=== PATIENT | male | born 1945 | race Caucasian/White ===

== ENCOUNTER → 2017-12-28 09:03 | Outpatient (CLI) | payer MEDICARE, SELFPAY ==
[2017-12-28 10:43] LABS: Cholesterol 125 mg/dL (140-199); HDL Cholesterol 58 mg/dL (40-60); LDL Cholesterol Calculated 50 mg/dL (<100); Triglycerides 86 mg/dL (35-150)
[2017-12-28 10:54] LABS: Creatinine Urine Random 222.4 mg/dL
[2017-12-28 11:04] LABS: Microalbumi Creatinin Ratio Ur 8.5 ug/mg CR (<30); Microalbumin Urine Random 1.9 mg/dL (0-1.6)
[2017-12-28 13:34] LABS: Prostate Specific Antigen Scrn < 0.064 ng/mL (0.1-4.0)
== END ==
PROVIDERS: PCP Family Medicine; Visit Provider Family Medicine
DX: E11.41 Type 2 diabetes mellitus with diabetic mononeuropathy (principal); E11.69 Type 2 diabetes mellitus with other specified complication; E78.5 Hyperlipidemia, unspecified; Z12.5 Encounter for screening for malignant neoplasm of prostate
CPT/HCPCS: 36415; 80061; 82043; 82570; 83036; G0103

== ENCOUNTER → 2018-09-21 09:18 | Outpatient (CLI) | payer MEDICARE, SELFPAY ==
[2018-09-21 10:41] LABS: Add Manual Diff / Slide Review YES; Hematocrit 44.2 % (41-53); Hemoglobin 14.4 g/dL (13.5-17.5); Mean Corpuscular HGB Conc 32.5 % (30-36); Mean Corpuscular Hemoglobin 28.5 PG (26-34); Mean Corpuscular Volume 87.6 fL (80-100); Platelet Count 190 X10^3/uL (150-400); Red Blood Cell Count 5.05 X10^6/uL (4.5-5.9); Red Cell Distribution Width 13.6 % (11.6-14.8); White Blood Cell Count 17.9 X10^3/uL (4.5-11.0)
[2018-09-21 11:03] LABS: Alanine Aminotransferase 14 IU/L (21-72); Albumin 4.2 g/dL (3.5-5.0); Albumin Globulin Ratio 1.7 (1.0-2.8); Alkaline Phosphatase 52 U/L (38-126); Aspartate Aminotransferase 27 IU/L (17-59); BUN Creatinine Ratio 18.8 (6-22); Bilirubin Total 1.5 mg/dL (0.2-1.3); Blood Urea Nitrogen 15 mg/dL (9-20); Calcium 9.7 mg/dL (8.4-10.2); Carbon Dioxide 28 mmol/L (22-32); Chloride 102 mmol/L (98-107); Cholesterol 113 mg/dL (140-199); Estimated Glomerular Filt Rate > 60.0 mL/min (>60); Globulin 2.5 g/dL (1.7-4.1); Glucose 159 mg/dL (80-110); HDL Cholesterol 54 mg/dL (40-60); HEMOLYSIS < 15 (0-50); LDL Cholesterol Calculated 45 mg/dL (<100); Potassium 4.5 mmol/L (3.4-5.1); Sodium 138 mmol/L (137-145); Total Protein 6.7 g/dL (6.3-8.2); Triglycerides 69 mg/dL (35-150)
[2018-09-21 11:11] LABS: Hemoglobin A1C% w Est Avg Glu 7.3 % (4.0-6.0); Neutrophils Absolute Manual 4296 /uL (3000-5900); Total Cells Counted 100
[2018-09-21 11:12] LABS: RBC Morphology Normal Morphology; Smudge Cells 2+
[2018-09-23 16:42] LABS: PSA Post Prostatectomy <0.02 ng/mL
== END ==
PROVIDERS: PCP Family Medicine; Visit Provider Family Medicine
DX: E11.41 Type 2 diabetes mellitus with diabetic mononeuropathy (principal); C91.90 Lymphoid leukemia, unspecified not having achieved remission; Z85.46 Personal history of malignant neoplasm of prostate
CPT/HCPCS: 36415; 80053; 80061; 83036; 84153; 85025

== ENCOUNTER → 2019-01-30 11:55 | Outpatient (CLI) | payer MEDICARE, SELFPAY ==
[2019-01-30 12:46] LABS: Hemoglobin A1C% w Est Avg Glu 7.3 % (4.0-6.0)
[2019-01-30 18:08] LABS: Microalbumin Urine Random 1.1 mg/dL (0-1.6)
[2019-01-30 18:10] LABS: Creatinine Urine Random 145.6 mg/dL; Microalbumi Creatinin Ratio Ur 7.5 ug/mg CR (<30)
== END ==
PROVIDERS: Family Provider Family Medicine; PCP Family Medicine; Visit Provider Family Medicine
DX: E11.59 Type 2 diabetes mellitus with other circulatory complications (principal)
CPT/HCPCS: 36415; 82043; 82570; 83036; 84443

== ENCOUNTER → 2019-03-08 07:52 | Outpatient (CLI) | payer MEDICARE, SELFPAY ==
--- NOTE | 2019-03-08 | DI.ECHO.S_ITS ---
[facility]---------+ [facility] +---------+ : : [address] : : : : [id number] : : : : Phone: [phone]+ Echocardiogram Report + + :Name: MICHELLE PADGETT Study Date: 03/08/2019 Height: 67 in : :[facility] Weight: 179 lb : : Gender: Male BSA: 1.9 m2 : :: 1945 Age: 74 yrs BP: 134/84 mmHg: :Reason For Study: Mitral Valve- Regurgitation : :Ordering Physician: Rick Power : :Jerardo Performed By: Oliver Ruth : :Referring: RICK KURTZ : + + Interpretation Summary 1) Normal left ventricular size, thickness, wall motion, and systolic function (EF 60-65%). 2) Normal right ventricular size and function. 3) There is mild mitral regurgitation. 4) Compared to the Echo done 04/09/2015, mitral regurgitation has decreased from mild-moderate to mild on this study. Procedure: A two-dimensional transthoracic echocardiogram with color flow and Doppler was performed. The study quality was technically adequate. Prior echo performed on 04/09/15. The patient was in normal sinus rhythm during the exam. Left Ventricle: The left ventricle is normal in size. There is normal left ventricular wall thickness. Left ventricular systolic function is normal. The ejection fraction is estimated to be 60-65%. Left ventricular wall motion is normal. Right Ventricle: The right ventricle is normal in size and function. Atria: The left atrium is mildly dilated. Right atrial size is normal. The interatrial septum is intact with no evidence for an atrial septal defect. Mitral Valve: The mitral valve leaflets appear mildly thickened, but open well. There is mild mitral regurgitation. Aortic Valve: There is mild aortic valve sclerosis. The aortic valve is trileaflet. The aortic valve opens well. There is no aortic valve stenosis. No aortic regurgitation is present. Tricuspid Valve: The tricuspid valve is normal in structure and function. There is trace tricuspid regurgitation. Pulmonary artery pressures cannot be estimated because of the lack of a measurable TR jet velocity. Pulmonic Valve: The pulmonic valve is not well visualized. Great Vessels: The aortic root is normal size. The ascending aorta is at the upper limits of normal in size. The pulmonary artery is normal size. The IVC is of normal diameter and collapses greater than 50% with a sniff. This suggests a low right atrial pressure of 3 mm Hg. Pericardium/ Pleura There is no pericardial effusion. There is no pleural effusion. MMode/2D Measurements & Calculations LVIDd: 4.4 cm LVOT diam: 2.0 cm LVIDs: 2.8 cm Ao root diam: 3.2 cm FS: 35.4 % asc Aorta Diam: 3.7 cm EPSS: 0.45 cm IVSd: 1.1 cm LVPWd: 1.1 cm LV garrett. diameter/BSA (cm/m^2): 2.3 LV sys. diameter/BSA (cm/m^2): 1.5 LA A2 area: 18.1 cm2 RA long axis: 5.2 cm LA A4 area: 16.6 cm2 RA area: 14.5 cm2 LA length (vol): 4.4 cm RA vol: 34.4 ml LA vol: 57.9 ml RA : 17.8 ml/m2 LA vol index: 30.0 ml/m2 TAPSE: 1.9 cm Doppler Measurements & Calculations Ao V2 max: 153.8 cm/sec LVOT Max Frantz: 93.9 cm/sec Ao V2 mean: 108.7 cm/sec LV V1 max P.5 mmHg Ao max P.5 mmHg LV V1 VTI: 20.2 cm Ao mean P.3 mmHg LOREN(I,D): 2.0 cm2 Ao V2 VTI: 32.5 cm LOREN(V,D): 1.9 cm2 sev ratio: 0.62 LOREN indexed to BSA (cm^2/m^2): 1.0 MV E max frantz: 60.4 cm/sec SV(LVOT): 64.7 ml MV A max frantz: 84.7 cm/sec MV E/A: 0.71 Med Peak E' Frantz: 6.6 cm/sec E/E' med: 9.1 Lat Peak E' Frantz: 6.4 cm/sec E/E' lat: 9.4 E/e' average: 9.3 MV dec time: 0.20 sec Reading Physician:11:23 AM
== END ==
PROVIDERS: Family Provider Family Medicine; PCP Family Medicine; Visit Provider Internal Medicine Cardiovascular Disease
DX: I34.0 Nonrheumatic mitral (valve) insufficiency (principal)
CPT/HCPCS: 93306

== ENCOUNTER → 2019-07-18 13:19 | Outpatient (CLI) | payer MEDICARE, SELFPAY ==
[2019-07-18 14:03] LABS: Hemoglobin A1C% w Est Avg Glu 7.4 % (4.0-6.0)
== END ==
PROVIDERS: Family Provider Family Medicine; PCP Family Medicine; Referring Provider Family Medicine; Visit Provider Family Medicine
DX: E11.41 Type 2 diabetes mellitus with diabetic mononeuropathy (principal)
CPT/HCPCS: 36415; 83036

== ENCOUNTER → 2019-10-14 11:00 | Outpatient (CLI) | payer MEDICARE, SELFPAY ==
[2019-10-15 09:23] LABS: COVID19 Sendout Not Detected (Not Detect)
== END ==
PROVIDERS: Family Provider Family Medicine; PCP Family Medicine; Visit Provider Physician Assistant
DX: Z11.59 Encounter for screening for other viral diseases (principal)
CPT/HCPCS: 87635

== ENCOUNTER 2019-10-17 09:42 | Day surgery (SDC) | payer MEDICARE, SELFPAY ==
[2019-10-17] VITALS (7 sets, daily range): BP systolic 90–105; BP diastolic 53–69; PULSE 56–73; RESP 12–16; TEMP 36.2–36.9; O2SAT 92–97; BMI 27.3
[2019-10-17] MEDS: LACTATED RINGERS 1,000 ML 200 ML IV (10:15)
--- NOTE | 2019-10-17 10:22 | PM.PREOP ---
Pre-operative Note COVID-19 COVID-19 status: Negative Result date/Date tested (Pos, Neg/Pending): 10/14/19 Interval Note History & Physical reviewed/Exam performed by Physician: Yes Changes to H&P: No ASA Class (for procedural sedation): III
[2019-10-17] MEDS: INSULIN REGULAR 100 UNIT/ML 3 ML VIAL IV (10:36)
[2019-10-17] MEDS: fentaNYL 250 MCG/5 ML INJ IV ×2 (10:46→10:57)
[2019-10-17] MEDS: MIDAZOLAM 5 MG/5 ML VIAL IV ×2 (10:46→10:54)
--- NOTE | 2019-10-17 11:18 | PM.OP.ENDO ---
Operative Date/Time/Diagnoses Date of procedure: 10/17/19 Time of procedure: 11:18 Pre-op diagnosis: Screening exam. Last exam 6 years ago. Personal history of polyps. Family history colon cancer. Post-op diagnosis: same (Diverticulosis sigmoid colon) Procedure & Clinicians Study performed: Colonoscopy Same procedure as scheduled: Yes Indications: Screening Surgeon: Bernard Springer Procedure Notes SCOAP/Timeout: Performed Procedure in detail: The patient was placed in the left lateral decubitus position and underwent IV sedation directed by the surgeon consisting of fentanyl and Versed. Digital exam was remarkable for an absent prostate. The scope was inserted and advanced through the rectum into the sigmoid, descending, transverse, and ascending colon. Extensive sigmoid diverticulosis was noted. There was some tortuosity.. The cecum was reached identified by the ileocecal valve and the appendiceal opening. The ileocecal valve was briefly cannulated. The terminal ileum was normal in appearance. The scope was gradually brought out. No Polyps were found . The scope ultimately was retroflexed in the rectum. The appearance was normal. The scope was removed and the patient tolerated the procedure well. Prep was good. Scope withdrawal time: 9 minutes Sedation minutes: 30 Findings: diverticulosis Specimen(s): none sent Complications: none Post-procedure Recommendations: Colonscopy in 5 years (Only if you are healthy enough for a colonoscopy. ) Follow up: as needed Disposition: PACU
== END 2019-10-17 12:18 | disposition home or self-care (01) ==
PROVIDERS: Family Provider Family Medicine; PCP Family Medicine; Referring Provider Specialist; Visit Provider Specialist
PROC: 0DJD8ZZ Inspection of Lower Intestinal Tract, Via Natural or Artificial Opening Endoscopic (ICD-10-PCS; CPT 45378; principal; 2019-10-17 10:45)
DX: K92.1 Melena (principal); K57.30 Diverticulosis of large intestine without perforation or abscess without bleeding; Z86.010 Personal history of colon polyps; E11.9 Type 2 diabetes mellitus without complications; I25.10 Atherosclerotic heart disease of native coronary artery without angina pectoris; I25.2 Old myocardial infarction; E78.5 Hyperlipidemia, unspecified; J45.909 Unspecified asthma, uncomplicated; Z80.0 Family history of malignant neoplasm of digestive organs; Z79.84 Long term (current) use of oral hypoglycemic drugs; Z85.6 Personal history of leukemia; Z85.46 Personal history of malignant neoplasm of prostate; Z95.5 Presence of coronary angioplasty implant and graft; Z87.891 Personal history of nicotine dependence
CPT/HCPCS: 45378; 99152; 99153; J2250; J3010

== ENCOUNTER → 2019-12-16 13:39 | Outpatient (CLI) | payer MEDICARE, SELFPAY ==
[2019-12-18 02:23] LABS: COVID19 Sendout Not Detected (Not Detect)
== END ==
PROVIDERS: Family Provider Family Medicine; PCP Family Medicine; Visit Provider Nurse Practitioner
DX: Z11.59 Encounter for screening for other viral diseases (principal)
CPT/HCPCS: 87635

== ENCOUNTER 2019-12-19 07:04 | Day surgery (SDC) | payer MEDICARE, SELFPAY ==
[2019-12-19] MEDS: PROPARACAINE 0.5% OPHTH SOL 2 DROPS EYE-OP (07:20)
[2019-12-19 07:21] VITALS: BP 112/79; PULSE 69; RESP 17; TEMP 36.2; O2SAT 95; BMI 26.6
[2019-12-19] MEDS: CATARACT EYE COMPOUND (10 DROPS/SYRINGE) 3 DROPS EYE-OP (07:31)
--- NOTE | 2019-12-19 08:07 | P.OP_ITS ---
Operative Date/Time/Diagnoses Pre-op diagnosis: Nuclear Cataract Left eye Post-op diagnosis: same Procedure & Clinicians Same procedure as scheduled: Yes Surgeon: Mac Bergeron Anesthesia Type: MAC +/- and Sedation Operative Notes Procedure in detail: Patient brought to the operating suite. Tetracaine drops placed in the left eye. Patient was prepped and draped in sterile manner. Wire lid speculum was placed in the eye. Betadine drops were placed on the eye. This was irrigated. Lidocaine jelly was placed on the eye. A paracentesis port was created with a side-port blade. 0.1 mL 1% preservative free lidocaine was injected into the anterior chamber. The anterior chamber was deepened with viscoelastic. 2.6 mm keratome was used to create a temporal clear corneal incision. Cystotome and Utrata forceps were used to create continuous tear capsulorrhexis. Balanced salt solution was used to hydro dissect the nucleus. The phacoemulsification handpiece was inserted and the nucleus was removed using the stop and chop technique. The irrigation aspiration handpiece was inserted and the remaining cortex was removed. Anterior chamber was deepened with viscoe lastic. An Quintero ZCB00 intraocular lens with a power of 17.0 was injected into the capsular bag. Irrigation aspiration handpiece was inserted and the remaining viscoelastic was removed. Incision was hydrated with balanced salt solution and found to be leak free with pressure with Weck-Claritza sponges. 0.1 mL Vigamox injected anterior chamber. 0.3 mL Kenalog 10 mg was injected subconjunctivally. Lid speculum was removed. The patient left the operating room in excellent condition. Complications: none Post-operative Condition: stable Disposition: same day surgery
--- NOTE | 2019-12-19 08:07 | PM.PREOP ---
Pre-operative Note Interval Note History & Physical reviewed/Exam performed by Physician: Yes Changes to H&P: No
[2019-12-19] MEDS: PHENYLEPHRINE/LIDOCAINE VIAL (OR) 0.2 ML EYE-OP (08:20)
[2019-12-19] MEDS: MOXIFLOXACIN INJ 5 MG/ML VIAL EYE-OP (08:21)
[2019-12-19] MEDS: TRIAMCINOLONE 50 MG/5 ML VIAL INJ (08:22)
[2019-12-19] MEDS: BALANCED SALT IRRIG SOLN NO.2 15 ML IRR (08:23)
[2019-12-19] MEDS: CHONDROIDTIN/SOD HYALURONATE 1.05 ML SYRINGE INTRAOCULA (08:23)
[2019-12-19] MEDS: LIDOCAINE JELLY 2% 5 ML 1 APPLIC TOP (08:24)
[2019-12-19] MEDS: TETRACAINE 0.5% OPHTH DROPS 4 ML 2 DROPS EYE-OP (08:25)
[2019-12-19] MEDS: BALANCED SALT IRRIG SOLN NO.2 500 ML, EPINEPHrine 1 MG IRR (08:25)
--- NOTE | 2019-12-19 08:29 | SUR.OPER ---
Supine on eye stretcher, head on extension cradle secured with tape. Arms tucked at sides with blanket. Pillow under knees.
[2019-12-19 08:40] VITALS: BP 103/71; PULSE 62; RESP 16; TEMP 36.2; O2SAT 95
[2019-12-19 09:10] VITALS: BP 109/73; PULSE 66; RESP 16; TEMP 36.6; O2SAT 97
--- NOTE | 2019-12-19 13:35 | SUR.PHASEII ---
Late entry: pt very slow to wake up, stayed with pt, pt eventually have juice and coffee, left when he was ready and left in stable condition.
== END 2019-12-19 09:10 | disposition home or self-care (01) ==
LOC: OR 07:05
PROVIDERS: Family Provider Family Medicine; PCP Family Medicine; Referring Provider Family Medicine; Visit Provider Ophthalmology
PROC: (CPT 66984; principal; 2019-12-19 08:15)
DX: H25.12 Age-related nuclear cataract, left eye (principal); J45.909 Unspecified asthma, uncomplicated; E11.9 Type 2 diabetes mellitus without complications; I10 Essential (primary) hypertension; Z79.84 Long term (current) use of oral hypoglycemic drugs; I51.9 Heart disease, unspecified
CPT/HCPCS: 66984; J0171; J2250; J3301

== ENCOUNTER → 2019-12-23 08:57 | Outpatient (CLI) | payer MEDICARE, SELFPAY ==
[2019-12-23 10:13] LABS: Alanine Aminotransferase 18 IU/L (<50); Albumin 4.1 g/dL (3.5-5.0); Albumin Globulin Ratio 1.6 (1.0-2.8); Alkaline Phosphatase 46 U/L (38-126); Aspartate Aminotransferase 29 IU/L (17-59); Bilirubin Total 1.7 mg/dL (0.2-1.3); Blood Urea Nitrogen 17 mg/dL (9-20); Calcium 9.8 mg/dL (8.4-10.2); Carbon Dioxide 31 mmol/L (22-32); Chloride 103 mmol/L (98-107); Cholesterol 113 mg/dL (140-199); Estimated Glomerular Filt Rate > 60.0 mL/min (>60); Globulin 2.5 g/dL (1.7-4.1); Glucose 158 mg/dL (80-110); HDL Cholesterol 54 mg/dL (40-60); HEMOLYSIS < 15 (0-50); LDL Cholesterol Calculated 43 mg/dL (<100); Potassium 4.7 mmol/L (3.4-5.1); Sodium 138 mmol/L (137-145); Total Protein 6.6 g/dL (6.3-8.2); Triglycerides 81 mg/dL (35-150)
[2019-12-23 13:02] LABS: Microalbumi Creatinin Ratio Ur 6.2 ug/mg CR (<30); Microalbumin Urine Random 0.9 mg/dL (0-1.6)
[2019-12-25 12:22] LABS: Hemoglobin A1C% w Est Avg Glu 7.3 % (4.0-6.0)
== END ==
PROVIDERS: Family Provider Family Medicine; PCP Family Medicine; Referring Provider Family Medicine; Visit Provider Family Medicine
DX: C91.90 Lymphoid leukemia, unspecified not having achieved remission (principal); E11.41 Type 2 diabetes mellitus with diabetic mononeuropathy
CPT/HCPCS: 36415; 80053; 80061; 82043; 82570; 83036

== ENCOUNTER → 2020-02-21 11:16 | Outpatient (CLI) | payer MEDICARE, SELFPAY ==
[2020-02-21 12:41] LABS: COVID19 -Nasal RAPID Negative (Negative)
== END ==
PROVIDERS: Family Provider Family Medicine; PCP Family Medicine; Visit Provider Physician Assistant
DX: Z20.822 Contact with and (suspected) exposure to COVID-19 (principal); R05 Cough; R09.81 Nasal congestion
CPT/HCPCS: 87635

== ENCOUNTER → 2020-04-29 14:58 | Outpatient (ROUT) | payer MEDICARE, SELFPAY ==
[2020-04-29 14:59] LABS: Bacteria Urine None Seen; RBC Urine None Seen (0-5/HPF); WBC Urine None Seen (0-5/HPF)
[2020-04-29 15:06] LABS: Appearance Urine UA CLOUDY; Bilirubin Urine UA NEGATIVE (NEGATIVE); Color Urine UA YELLOW; Glucose Urine UA NEGATIVE (Negative); Ketones Urine UA NEGATIVE (NEGATIVE); Leukocyte Esterase Urine UA NEGATIVE (NEGATIVE); Nitrite Urine UA NEGATIVE (Negative); Occult Blood Urine UA NEGATIVE (Negative); Protein Urine UA NEGATIVE (Negative); Specific Gravity Urine UA >=1.030 (1.000-1.035); Urobilinogen Urine UA 0.2 E.U./dL (0.2)
[2020-04-29 15:41] LABS: Amorphous Sediment Urine 4+; Culture Indicated Urine Cult Not Indicated; Mucus Urine 1+ (Negative); Squamous Epithelial Cell Urine 0-1 /HPF (0-5/HPF)
== END ==
PROVIDERS: Family Provider Family Medicine; PCP Family Medicine; Visit Provider Family Medicine
DX: R31.9 Hematuria, unspecified (principal)
CPT/HCPCS: 81001

== ENCOUNTER → 2020-05-07 12:10 | Outpatient (CLI) | payer MEDICARE, SELFPAY ==
[2020-05-07 14:38] LABS: BUN Creatinine Ratio 19.5 (6-22); Blood Urea Nitrogen 16 mg/dL (9-20); Estimated Glomerular Filt Rate > 60.0 mL/min (>60)
== END ==
PROVIDERS: Family Provider Family Medicine; PCP Family Medicine; Referring Provider Student in an Organized Health Care Education/Training Program; Visit Provider Student in an Organized Health Care Education/Training Program
DX: R31.0 Gross hematuria (principal)
CPT/HCPCS: 36415; 82565; 84520

== ENCOUNTER → 2020-05-09 13:38 | Outpatient (CLI) | payer MEDICARE, SELFPAY ==
--- NOTE | 2020-05-09 13:41 | DI.CT.S_ITS ---
PROCEDURE: CT ABDOMEN PELVIS WO/W CON INDICATIONS: Gross hematuria TECHNIQUE: Optional 5 mm thick noncontrast images acquired from the diaphragm to the symphysis pubis. After the administration of intravenous contrast, 5 mm thick images acquired from the diaphragm to the symphysis pubis after a 10-minute delay. 2 mm thick coronal and sagittal reformats were then performed of the kidneys and ureters. For radiation dose reduction, the following was used: automated exposure control, adjustment of mA and/or kV according to patient size. COMPARISON: None. FINDINGS: Image quality: Excellent. Lung bases: Lung bases are clear. Heart size is normal. Urinary system: Both kidneys are normal in size, without hydronephrosis or nephrolithiasis on pre-contrast images. No perinephric fat stranding. There is normal bilateral renal enhancement. Renal calyces appear normal in morphology when filled with contrast. Opacified portions of both ureters demonstrate normal caliber. Bladder wall thickness is normal, but there is a polypoid masslike structure at the lateral border of the bladder, on the left, immediately anterior to the left ureteral insertion. This is best seen on the source axial imaging postcontrast, series 3, image 188, measuring 9 mm maximal dimension. No calcified bladder stones. Other solid organs: Liver is normal in size and enhancement. Gallbladder appears normal. Biliary system is non dilated. Pancreas enhances normally. Spleen is normal in size and enhancement. Both the liver and spleen contain scattered presumed calcific granulomas. No adrenal nodules. Peritoneum and bowel: Bowel loops demonstrate normal wall thickness and caliber. No free fluid or air. Nodes and vessels: No retroperitoneal or mesenteric adenopathy by size criteria. Aorta and inferior vena cava are normal in size. Abdominal wall: No ventral hernias. Pelvis: No pathologic free pelvic fluid. No inguinal hernias or adenopathy. Bones: No suspicious bony lesions. No vertebral body compression fractures. IMPRESSION: 1. No urinary tract stone or evidence of renal cortical carcinoma is found. 2. There is a 9 mm urothelial mass like structure immediately anterior to the left ureteral insertion into the bladder lumen. This structure raises concern for early manifestation of urothelial carcinoma and cystoscopic evaluation is recommended. The level of suspicion for true malignancy as cause of this appearance is high. No evidence of metastatic disease. No evidence of urothelial mass more superiorly through the urinary tract bilaterally. 3. Incidental note is made of scattered punctate calcifications involving the spleen and liver. Old granulomatous disease is the presumed cause. Dictated by: Andrew Sauceda M.D. on 05/09/2020 at 16:39 Approved by: Andrew Sauceda M.D. on 05/09/2020 at 16:45
== END ==
PROVIDERS: Family Provider Family Medicine; PCP Family Medicine; Referring Provider Student in an Organized Health Care Education/Training Program; Visit Provider Student in an Organized Health Care Education/Training Program
DX: R31.0 Gross hematuria (principal); N28.9 Disorder of kidney and ureter, unspecified; D73.89 Other diseases of spleen; K76.89 Other specified diseases of liver
CPT/HCPCS: 74178; Q9967

== ENCOUNTER → 2020-06-15 09:18 | Outpatient (CLI) | payer MEDICARE, OTHER, SELFPAY ==
[2020-06-15 11:28] LABS: COVID19 -Nasal RAPID Negative (Negative)
== END ==
PROVIDERS: Family Provider Family Medicine; PCP Family Medicine; Visit Provider Physician Assistant
DX: Z01.812 Encounter for preprocedural laboratory examination (principal); Z20.822 Contact with and (suspected) exposure to COVID-19
CPT/HCPCS: 87635; C9803

== ENCOUNTER → 2020-06-24 14:10 | Outpatient (CLI) | payer MEDICARE, OTHER, SELFPAY ==
[2020-06-24 14:40] LABS: Hemoglobin A1C% w Est Avg Glu 6.9 % (4.0-6.0)
== END ==
PROVIDERS: Family Provider Family Medicine; PCP Family Medicine; Referring Provider Family Medicine; Visit Provider Family Medicine
DX: E11.41 Type 2 diabetes mellitus with diabetic mononeuropathy (principal)
CPT/HCPCS: 36415; 83036

== ENCOUNTER 2021-01-03 21:20 | Emergency (ER) | payer MEDICARE, OTHER, SELFPAY ==
[2021-01-03 21:26] VITALS: BP 166/79; PULSE 96; RESP 18; TEMP 37.2; O2SAT 96; BMI 26.9
[2021-01-03] MEDS: LIDOCAINE 2% (GLYDO) 6 ML GEL TOP (21:44)
[2021-01-04 00:03] LABS: Appearance Urine UA CLOUDY; Color Urine UA BROWN; Specific Gravity Urine UA >=1.030 (1.000-1.035); pH Urine UA 5 (4.5-8.0)
[2021-01-04 00:04] LABS: Glucose Urine UA 2+ g/dL (Negative); Occult Blood Urine UA 3+ (Negative)
[2021-01-04 00:05] LABS: Bacteria Urine None Seen; Bilirubin Urine UA Negative (NEGATIVE); Leukocyte Esterase Urine UA NEGATIVE (NEGATIVE); RBC Urine >100/HPF (0-5/HPF); WBC Urine 0-1/HPF (0-5/HPF)
[2021-01-04 00:06] LABS: Culture Indicated Urine Specimen Cultured
--- NOTE | 2021-01-04 01:01 | ED_ITS ---
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 In June of 2020 he had his initial bladder cancer resection. In September cystoscopy was done and there were no abnormalities. Follow-up 2 weeks ago indicated recurrent cancers and on Wednesday he had 3 areas of bladder cancer excised. He had some mild discomfort and hematuria but nothing that was worse than previously until this evening when he was unable to void at all. Related Data Home Medications Medication Instructions Recorded Confirmed omega-3s 350 by-bdv-[id number]-fish 1 cap PO DAILY #0 05/21/17 04/29/20 oil-D3 1,000 unit capsule ([place]-3 + D3) cholecalciferol (vitamin D3) 50 2,000 unit PO DAILY 09/30/18 04/29/20 mcg (2,000 unit) capsule latanoprost 0.005 % eye drops 1 drp EYE-BOTH QPM ml 09/30/18 04/29/20 (Xalatan) aspirin 81 mg tablet,delayed 81 mg PO DAILY 10/17/19 04/29/20 release (Aspirin Low Dose) Previous Rx's Medication Instructions Recorded Contour Next Test Strips (blood #100 each NS 08/04/19 sugar diagnostic) carvedilol 3.125 mg tablet 3.125 mg PO BID #180 tab 09/26/19 losartan 25 mg tablet 25 mg PO DAILY #90 tab 09/26/19 atorvastatin 40 mg tablet 40 mg PO DAILY #90 tab 12/21/19 budesonide-formoterol HFA 160 See Rx Instructions .ROUTE 01/29/20 mcg-4.5 mcg/actuation aerosol .COMPLEX #10.2 g inhaler (Symbicort) albuterol sulfate 90 mcg/actuation 2 puff INHALATION Q6H PRN #6.7 gram 07/18/20 aerosol inhaler (ProAir HFA) alprazolam 0.25 mg tablet 0.25 mg PO .QHS PRN #30 tab 10/11/20 glipizide 5 mg tablet, extended See Rx Instructions .ROUTE 12/20/20 release 24 hr .COMPLEX #90 tab metformin 500 mg tablet See Rx Instructions .ROUTE 12/20/20 .COMPLEX #450 tab Allergies Allergy/AdvReac Type Severity Reaction Status Date / Time montelukast AdvReac Mild insomnia Verified 04/29/20 12:04 Review of Systems Review of Systems Narrative: Pertinent positive and negative findings as per HPI Remainder of review of systems is otherwise unremarkable for Constitutional: Fevers, chills, weakness ENT: No sore throat, neck pain, ear pain CV: Chest pain, palpitations, Respiratory: Cough, wheeze, dyspnea GI: Nausea, vomiting, diarrhea, Patient History Medical History Acromioclavicular joint separation (1970) Asthma Bladder cancer CAD (coronary artery disease) (1999) Chicken pox Chronic lymphocytic leukemia (02/12/17) CLL (chronic lymphocytic leukemia) (01/2012) Diabetes mellitus (1985) Dissecting aneurysm of iliac artery Foot pain (2012) Hayfever Hearing loss (2012) Hyperlipidemia (1984) Lumbar spine pain (1977) Measles (~194) MT (myocardial infarction) (2015) Mild persistent asthma without complication (02/12/17) Peripheral neuropathy (1994) Peripheral vascular disease (2016) Prostate cancer (2009) Right knee pain (2012) Status post placement of stent in right coronary artery (02/12/17) Type 2 diabetes mellitus with diabetic mononeuropathy, without long-term current use of insulin (02/12/17) Urinary incontinence (2009) Surgical History Anesthesia History of shoulder surgery (1970) S/P right coronary artery (RCA) stent placement (1999) S/P right coronary artery (RCA) stent placement (2015) Status post laparoscopic cholecystectomy (2016) Status post radical cystoprostatectomy (2009) Status post tonsillectomy and adenoidectomy (1948) Family History Brother Heart disease High cholesterol Diabetes mellitus Father Heart disease Hypertension High cholesterol Diabetes mellitus Liver cancer Grandfather Heart disease MT (myocardial infarction) Grandmother Mental health problem Cancer Mother Heart disease Diabetes mellitus Colon cancer Sister Heart disease Hypertension High cholesterol Diabetes mellitus Grandfather No problems noted. Grandmother Trauma Social History marital status: household members: spouse pets and animals: No education level: other leisure activities: reading other: exercise,stamps,travel seatbelt use: always water heater temp set < 120 deg: No working smoke detector in home: Yes fire extinguisher in home: Yes carbon monox detector in home: Yes firearms in home: No Smoking Status: Former smoker alcohol intake: current during the past year weight has: remained stable well-balanced diet: daily or most days daily servings fruits/ve-4 caffeine: Yes eating out: 1-3 times/week Type(s) of exercise: walking and weight lifting frequency: 3-4 times per week Smoking Status: Former smoker alcohol intake frequency: a few times a month Substance Use Type: marijuana Exam Narrative Exam Narrative: General: Healthy appearing, in no acute distress. Able to give a complete and coherent history. Well-nourished well-developed HEENT: Moist mucous membranes, normal sclera with reactive pupils, Respiratory: Lungs are clear to auscultation, no wheezing no rales no rhonchi. Full and symmetrical air movement Cardiac: Regular rate and rhythm no murmurs no bruits Abdomen: Soft, nontender, good bowel tones, no flank pain Skin: Warm and dry, no rashes Neurologic: Grossly neurologically intact with no obvious asymmetries or abnormalities Extremities: No trauma, well perfused Psych: Cooperative, appropriate insight and affect Soto catheter is placed without difficulty. Initial urine output is 600 cc that is dark secondary to blood and use of azo however there is no actual clot appreciated. Initial Vital Signs Initial Vital Signs: Vital Signs Temperature 98.9 F 01/03/21 21:26 Pulse Rate 96 H 01/03/21 21:26 Respiratory Rate 18 01/03/21 21:26 Blood Pressure 166/79 H 01/03/21 21:26 Pulse Oximetry 96 01/03/21 21:26 Course Orders Ordered: ED Orders 01/03/21 22:00 Urinalysis and Microscopic Stat Urine Culture Stat Discontinued Medications Lidocaine HCl (Lidocaine 2% (Glydo) 6 Ml Gel) 6 ml TOP NOW ONE Stop: 01/03/21 21:40 Last Admin: 01/03/21 21:44 Dose: 6 ml Documented by: DEO Vital Signs Vital signs: Vital Signs - 8 hr 01/03/21 21:26 Temperature 98.9 F Pulse Rate 96 H Respiratory Rate 18 Blood Pressure 166/79 H Pulse Oximetry 96 MDM - Male Genitourinary Lab Data Labs: Lab Results 01/03/21 Range/Units 22:00 Urine Color Brown Urine Appearance Cloudy Urine pH 5 (4.5-8.0) Ur Specific [place] >=1.030 H (1.000-1.035) Urine Protein Not Reportable Urine Glucose (UA) 2+ H (Negative) g/dL Urine Ketones Not Reportable Urine Occult Blood 3+ H (Negative) Urine Nitrate Not Reportable Urine Bilirubin Negative (NEGATIVE) Urine Urobilinogen Not Reportable Ur Leukocyte Esterase Negative (NEGATIVE) Urine RBC >100/hpf H (0-5/HPF) Urine WBC 0-1/hpf (0-5/HPF) Urine Bacteria None seen (None) Ur Culture Indicated? Specimen cultured Micro UA Comment * [facility] Narrative Medical decision making narrative: 75-year-old gentleman who had 3 areas of bladder cancer excised 2 days ago and is experiencing acute urinary retention this evening. Soto catheter is placed and 600 cc of urine is out without obvious clot but clearly blood in the urine. Pain is entirely resolved. He is sent home with leg bag and instructions on Soto catheter use. He will follow-up with his urologist next week. Discharge Plan Departure Patient Disposition: Home Clinical Impression: Acute urinary retention Instructions: DI for Urinary Retention in Men Activity Restrictions/Additional Instructions: Thank you for coming in this evening I am sorry that you ended up having acute urinary retention this evening. There did not appear to be any obvious clots however your urine was quite dark secondary to blood and the Azo Please contact your urologist on Wednesday and let him know that you were in the ER and had a Soto catheter placed and schedule an appointment to have the catheter removed. Presumably after some of the swelling and irritation decrease is you should again be able to have no difficulty with urination. There is no evidence of infection in your urine today however the urine was cultured. I hope everything heals nicely. Prescriptions: No Action latanoprost [Xalatan] 0.005 % drops 1 drp EYE-BOTH QPM 0RF cholecalciferol (vitamin D3) 2,000 unit capsule 2,000 unit PO DAILY 0RF [place]-3 + D3 350 mg- 1,000 unit capsule 1 cap PO DAILY Qty: 0 0RF (DME) blood sugar diagnostic [Contour Next Test Strips] Strip See Rx Instructions .ROUTE .MEDSUPPLY Qty: 100 2RF Rx Instructions: As directed up to QID carvedilol 3.125 mg tablet 3.125 mg PO BID Qty: 180 1RF losartan 25 mg tablet 25 mg PO DAILY Qty: 90 1RF atorvastatin 40 mg tablet 40 mg PO DAILY Qty: 90 3RF budesonide-formoterol [Symbicort] 160-4.5 mcg/actuation HFA aerosol inhaler See Rx Instructions .ROUTE .COMPLEX Qty: 10.2 1RF Dose Instruction: INHALE 1 PUFF BY MOUTH TWICE DAILY Rx Instructions: INHALE 1 PUFF BY MOUTH TWICE DAILY albuterol sulfate [ProAir HFA] 90 mcg/actuation HFA aerosol inhaler 2 puff INHALATION Q6H PRN (Reason: ASTHMA) Qty: 6.7 3RF Rx Instructions: administer with spacer alprazolam 0.25 mg tablet 0.25 mg PO .QHS PRN (Reason: insomnia) Qty: 30 1RF Rx Instructions: 1-2 prn anxiety, sleep glipizide 5 mg tablet extended release 24hr See Rx Instructions .ROUTE .COMPLEX Qty: 90 1RF Dose Instruction: TAKE ONE TABLET BY MOUTH ONE TIME DAILY Rx Instructions: TAKE ONE TABLET BY MOUTH ONE TIME DAILY metformin 500 mg tablet See Rx Instructions .ROUTE .COMPLEX Qty: 450 0RF Dose Instruction: Take 2 tablets by mouth once in the morning, 1 tablet once at noon and2 tablets once in the evening. Rx Instructions: Take 2 tablets by mouth once in the morning, 1 tablet once at noon and2 tablets once in the evening. aspirin [Aspirin Low Dose] 81 mg Tablet,Delayed Release (Dr/Ec) 81 mg PO DAILY 0RF Referrals: Jessica Alston MD [Primary Care Provider] -
[2021-01-04 01:16] VITALS: BP 123/75; PULSE 76; RESP 16; O2SAT 94
== END 2021-01-04 01:25 | disposition home or self-care (01) ==
PROVIDERS: Emergency Provider Emergency Medicine; Family Provider Family Medicine; PCP Family Medicine
DX: R33.9 Retention of urine, unspecified (principal); C67.9 Malignant neoplasm of bladder, unspecified; Z98.890 Other specified postprocedural states
CPT/HCPCS: 81001; 87086; 99283

== ENCOUNTER → 2021-01-07 07:06 | Outpatient (CLI) | payer MEDICARE, OTHER, SELFPAY ==
[2021-01-07 08:24] LABS: Hemoglobin A1C% w Est Avg Glu 6.9 % (4.0-6.0)
[2021-01-07 08:27] LABS: Alanine Aminotransferase 17 IU/L (<50); Albumin 4.2 g/dL (3.5-5.0); Albumin Globulin Ratio 1.8 (1.0-2.8); Alkaline Phosphatase 53 U/L (38-126); Aspartate Aminotransferase 28 IU/L (17-59); BUN Creatinine Ratio 23.8 (6-22); Bilirubin Total 0.9 mg/dL (0.2-1.3); Blood Urea Nitrogen 19 mg/dL (9-20); Calcium 9.6 mg/dL (8.4-10.2); Carbon Dioxide 29 mmol/L (22-32); Chloride 100 mmol/L (98-107); Cholesterol 106 mg/dL (140-199); Estimated Glomerular Filt Rate > 60.0 mL/min (>60); Globulin 2.3 g/dL (1.7-4.1); Glucose 156 mg/dL (80-110); HDL Cholesterol 46 mg/dL (40-60); HEMOLYSIS < 15 (0-50); LDL Cholesterol Calculated 36 mg/dL (<100); Potassium 4.3 mmol/L (3.4-5.1); Sodium 137 mmol/L (137-145); Total Protein 6.5 g/dL (6.3-8.2); Triglycerides 118 mg/dL (35-150)
[2021-01-07 08:57] LABS: Creatinine Urine Random 127.9 mg/dL
[2021-01-07 09:00] LABS: Microalbumi Creatinin Ratio Ur 112.5 ug/mg CR (<30); Microalbumin Urine Random 14.4 mg/dL (0-1.6)
== END ==
PROVIDERS: Family Provider Family Medicine; PCP Family Medicine; Referring Provider Family Medicine; Visit Provider Family Medicine
DX: E11.41 Type 2 diabetes mellitus with diabetic mononeuropathy (principal); E78.5 Hyperlipidemia, unspecified; C91.90 Lymphoid leukemia, unspecified not having achieved remission
CPT/HCPCS: 36415; 80053; 80061; 82043; 82570; 83036

== ENCOUNTER 2021-01-14 10:28 | Emergency (ER) | payer MEDICARE, OTHER, SELFPAY ==
[2021-01-14] VITALS (10 sets, daily range): BP systolic 100–188; BP diastolic 58–80; PULSE 72–88; RESP 14–20; TEMP 36.7; O2SAT 94–100
[2021-01-14 11:41] LABS: Appearance Urine UA TURBID; Color Urine UA RED
[2021-01-14 11:42] LABS: Bacteria Urine None Seen; Culture Indicated Urine Specimen Cultured; RBC Urine >100/HPF (0-5/HPF); WBC Urine 10-30/HPF (0-5/HPF)
--- NOTE | 2021-01-14 12:15 | ED.MALEGU ---
HPI - Male Genitourinary General Chief complaint: Urogenital-Male Stated complaint: Cant urinate but has urges Time Seen by Provider: 01/14/21 12:02 Source: patient Mode of arrival: Ambulatory Limitations: no limitations History of Present Illness HPI Narrative: Patient here with . Complains of urinary retention and hematuria again. Patient seen here 10 days ago and had Soto catheter placed. Please see notes below. His urologist is in [place]. He did remove catheter at home. 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 Has been doing well otherwise. Patient has appointment with his urologist tomorrow already scheduled. 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 In June of 2020 he had his initial bladder cancer resection.? In September? cystoscopy was done and there were no abnormalities.? Follow-up 2 weeks ago indicated recurrent cancers and on Wednesday he had 3 areas of bladder cancer excised.? He had some mild discomfort and hematuria but nothing that was worse than previously until this evening when he was unable to void at all.? Related Data Home Medications Medication Instructions Recorded Confirmed omega-3s 350 ht-buy-bvv-fish 1 cap PO DAILY #0 05/21/17 04/29/20 oil-D3 1,000 unit capsule (Tarina Blue [place]-3 + D3) cholecalciferol (vitamin D3) 50 2,000 unit PO DAILY 09/30/18 04/29/20 mcg (2,000 unit) capsule latanoprost 0.005 % eye drops 1 drp EYE-BOTH QPM ml 09/30/18 04/29/20 (Xalatan) aspirin 81 mg tablet,delayed 81 mg PO DAILY 10/17/19 04/29/20 release (Aspirin Low Dose) Previous Rx's Medication Instructions Recorded Contour Next Test Strips (blood #100 each NS 08/04/19 sugar diagnostic) carvedilol 3.125 mg tablet 3.125 mg PO BID #180 tab 09/26/19 losartan 25 mg tablet 25 mg PO DAILY #90 tab 09/26/19 atorvastatin 40 mg tablet 40 mg PO DAILY #90 tab 12/21/19 budesonide-formoterol HFA 160 See Rx Instructions .ROUTE 01/29/20 mcg-4.5 mcg/actuation aerosol .COMPLEX #10.2 g inhaler (Symbicort) albuterol sulfate 90 mcg/actuation 2 puff INHALATION Q6H PRN #6.7 gram 07/18/20 aerosol inhaler (ProAir HFA) alprazolam 0.25 mg tablet 0.25 mg PO .QHS PRN #30 tab 10/11/20 glipizide 5 mg tablet, extended See Rx Instructions .ROUTE 12/20/20 release 24 hr .COMPLEX #90 tab metformin 500 mg tablet See Rx Instructions .ROUTE 12/20/20 .COMPLEX #450 tab Allergies Allergy/AdvReac Type Severity Reaction Status Date / Time montelukast AdvReac Mild insomnia Verified 04/29/20 12:04 Review of Systems Review of Systems Narrative: GENERAL: Denies chills, fatigue, malaise, fever, sweats. : Denies dysuria, frequency, positive for retention and hematuria SKIN: Denies rash, skin lesions ROS Unobtainable: All systems reviewed & are unremarkable except as noted in HPI and below Patient History Medical History Acromioclavicular joint separation (1970) Asthma Bladder cancer CAD (coronary artery disease) (1999) Chicken pox Chronic lymphocytic leukemia (02/12/17) CLL (chronic lymphocytic leukemia) (01/2012) Diabetes mellitus (1985) Dissecting aneurysm of iliac artery Foot pain (2012) Hayfever Hearing loss (2012) Hyperlipidemia (1984) Lumbar spine pain (1977) Measles (~1943) DE (myocardial infarction) (2015) Mild persistent asthma without complication (02/12/17) Peripheral neuropathy (1994) Peripheral vascular disease (2016) Prostate cancer (2009) Right knee pain (2012) Status post placement of stent in right coronary artery (02/12/17) Type 2 diabetes mellitus with diabetic mononeuropathy, without long-term current use of insulin (02/12/17) Urinary incontinence (2009) Surgical History Anesthesia History of shoulder surgery (1970) S/P right coronary artery (RCA) stent placement (1999) S/P right coronary artery (RCA) stent placement (2015) Status post laparoscopic cholecystectomy (2017) Status post radical cystoprostatectomy (2009) Status post tonsillectomy and adenoidectomy (1949) Family History Brother Heart disease High cholesterol Diabetes mellitus Father Heart disease Hypertension High cholesterol Diabetes mellitus Liver cancer Grandfather Heart disease [place] (myocardial infarction) Grandmother Mental health problem Cancer Mother Heart disease Diabetes mellitus Colon cancer Sister Heart disease Hypertension High cholesterol Diabetes mellitus Grandfather No problems noted. Grandmother Trauma Social History marital status: household members: spouse pets and animals: No education level: other leisure activities: reading other: exercise,stamps,travel seatbelt use: always water heater temp set < 120 deg: No working smoke detector in home: Yes fire extinguisher in home: Yes carbon monox detector in home: Yes firearms in home: No Smoking Status: Former smoker alcohol intake: current during the past year weight has: remained stable well-balanced diet: daily or most days daily servings fruits/ve-4 caffeine: Yes eating out: 1-3 times/week Type(s) of exercise: walking and weight lifting frequency: 3-4 times per week Smoking Status: Former smoker alcohol intake frequency: a few times a month Substance Use Type: marijuana Exam Narrative Exam Narrative: GENERAL: in no distress, not toxic not dyspneic HEAD: Normocephalic. EYES: Pupils equal round No scleral icterus. [place] conjunctivae GASTROINTESTINAL: Abdomen soft, non-tender, no peritoneal signs : No blood at meatus. There is dark blood/urine Soto bag. NEURO: AOx4. SKIN: Warm and dry PSYCH: Not anxious, is cooperative Initial Vital Signs Initial Vital Signs: Vital Signs Temperature 98.0 F 01/14/21 10:50 Pulse Rate 88 01/14/21 10:50 Respiratory Rate 20 01/14/21 10:50 Blood Pressure 188/80 H 01/14/21 10:50 Pulse Oximetry 100 01/14/21 10:50 Course Course Course Narrative: dr lowe, urology, phone number is [phone] Orders Ordered: ED Orders 01/14/21 11:30 UA Complete [Urinalysis and Microscopic] Stat Urine Culture Stat 01/14/21 14:24 CBC Auto Diff [Complete Blood Count AUTO DIFF] Stat CMP [Comprehensive Metabolic Panel] Stat Reevaluation(s) Reevaluation #1: Updated patient results. Feeling much better with Soto catheter. He states his blood pressure is low when he is relaxed like this. This is not a common. Not to be concerned about. 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 Time: 15:38 Consultations Consultation #1: Spoke with patient's urologist, Dr. Lowe, agrees with treatment plan however, patient has already left. He would like patient to follow-up in [address]. He will have his office call patient tomorrow to inform him to postpone office appointment. Time: 16:21 Vital Signs Vital signs: Vital Signs - 8 hr 01/14/21 10:50 01/14/21 11:33 01/14/21 13:56 Temperature 98.0 F Pulse Rate 88 84 75 Respiratory Rate 20 14 Blood Pressure 188/80 H 100/67 Pulse Oximetry 100 98 96 01/14/21 14:00 01/14/21 14:01 01/14/21 14:30 Temperature Pulse Rate 76 74 76 Respiratory Rate Blood Pressure 108/69 Pulse Oximetry 97 96 98 01/14/21 14:36 01/14/21 15:00 01/14/21 15:30 Temperature Pulse Rate 75 79 72 Respiratory Rate Blood Pressure 108/69 106/63 105/58 L Pulse Oximetry 98 96 94 01/14/21 16:00 Temperature Pulse Rate 77 Respiratory Rate Blood Pressure 117/70 Pulse Oximetry 97 MDM - Male Genitourinary Differential Diagnosis Differential diagnosis: Likely urinary tract infection and acute retention of urine Lab Data Result diagrams: 01/14/21 14:24 01/14/21 14:24 Labs: Lab Results 01/14/21 01/14/21 01/14/21 Range/Units 11:30 14:24 14:24 WBC 17.6 H (4.5-11.0) X10^3/uL RBC 3.96 L (4.5-5.9) X10^6/uL Hgb 11.3 L (13.5-17.5) g/dL Hct 34.7 L (41-53) % MCV 87.7 (80-100) fL MCH 28.5 (26-34) PG MCHC 32.5 (30-36) % RDW 13.1 (11.6-14.8) % Plt Count 204 (150-400) X10^3/uL Neut % (Auto) Not Reportable Lymph % (Auto) Not Reportable Dent % (Auto) Not Reportable Eos % (Auto) Not Reportable Baso % (Auto) Not Reportable Lymph # (Auto) Not Reportable [place] # (Auto) Not Reportable Baso # (Auto) Not Reportable Total Counted 100 Seg Neutrophils % 29.0 L (38-70) % Band Neutrophils % 1.0 L (3-7) % Lymphocytes % (Manual) 64.0 H (25-45) % Monocytes % (Manual) 4.0 (2-11) % Eosinophils % (Manual) 2.0 (2-4) % Neutrophils # (Manual) 5280 (6213-8024) /uL [place] Cells 2+ H RBC Morphology Normal morphology Sodium 137 (137-145) mmol/L Potassium 4.2 (3.4-5.1) mmol/L Chloride 102 (98-107) mmol/L Carbon Dioxide 29 (22-32) mmol/L BUN 15 (9-20) mg/dL Creatinine 0.80 (0.66-1.25) mg/dL Estimated GFR > 60.0 (>60) mL/min BUN/Creatinine Ratio 18.8 (6-22) Glucose 129 H (80-110) mg/dL Calcium 9.4 (8.4-10.2) mg/dL Total Bilirubin 1.5 H (0.2-1.3) mg/dL AST 27 (17-59) IU/L ALT 16 (<50) IU/L Alkaline Phosphatase 45 (38-126) U/L Total Protein 5.9 L (6.3-8.2) g/dL Albumin 3.8 (3.5-5.0) g/dL Globulin 2.1 (1.7-4.1) g/dL Albumin/Globulin Ratio 1.8 (1.0-2.8) Urine Color Red Urine Appearance Turbid Urine pH TNP Ur Specific [place] TNP Urine Protein TNP Urine Glucose (UA) TNP Urine Ketones TNP Urine Occult Blood TNP Urine Nitrate TNP Urine Bilirubin TNP Urine Urobilinogen TNP Ur Leukocyte Esterase TNP Urine RBC >100/hpf H (0-5/HPF) Urine WBC 10-30/hpf H (0-5/HPF) Urine Bacteria None seen (None) Ur Culture Indicated? Specimen cultured MDM Narrative Medical decision making narrative: [place] for discharge home. Reviewed results with patient. Hemoglobin slightly low compared to previous. Blood pressure is not uncommon for patient according to him. White cell count noted. History of CLL. Return precautions reviewed with him. He is very comfortable for discharge home and follow-up with his urologist as scheduled tomorrow. Discharge Plan Departure Patient Disposition: Home Clinical Impression: Acute urinary retention, Hematuria Instructions: How to Care for Your Soto Catheter -- Male, DI for Hematuria, DI for Urinary Retention in Men Activity Restrictions/Additional Instructions: It was a pleasure meeting you and your family today. Please see your urologist tomorrow as scheduled. Return if worse if any questions or concerns. Continue Soto catheter care. Keep well hydrated. Return if any problems with the catheter or any blockages. Or increased bleeding. Prescriptions: No Action latanoprost [Xalatan] 0.005 % drops 1 drp EYE-BOTH QPM 0RF cholecalciferol (vitamin D3) 2,000 unit capsule 2,000 unit PO DAILY 0RF Tarina Blue [place]-3 + D3 350 mg- 1,000 unit capsule 1 cap PO DAILY Qty: 0 0RF (DME) blood sugar diagnostic [Contour Next Test Strips] Strip See Rx Instructions .ROUTE .MEDSUPPLY Qty: 100 2RF Rx Instructions: As directed up to QID carvedilol 3.125 mg tablet 3.125 mg PO BID Qty: 180 1RF losartan 25 mg tablet 25 mg PO DAILY Qty: 90 1RF atorvastatin 40 mg tablet 40 mg PO DAILY Qty: 90 3RF budesonide-formoterol [Symbicort] 160-4.5 mcg/actuation HFA aerosol inhaler See Rx Instructions .ROUTE .COMPLEX Qty: 10.2 1RF Dose Instruction: INHALE 1 PUFF BY MOUTH TWICE DAILY Rx Instructions: INHALE 1 PUFF BY MOUTH TWICE DAILY albuterol sulfate [ProAir HFA] 90 mcg/actuation HFA aerosol inhaler 2 puff INHALATION Q6H PRN (Reason: ASTHMA) Qty: 6.7 3RF Rx Instructions: administer with spacer alprazolam 0.25 mg tablet 0.25 mg PO .QHS PRN (Reason: insomnia) Qty: 30 1RF Rx Instructions: 1-2 prn anxiety, sleep glipizide 5 mg tablet extended release 24hr See Rx Instructions .ROUTE .COMPLEX Qty: 90 1RF Dose Instruction: TAKE ONE TABLET BY MOUTH ONE TIME DAILY Rx Instructions: TAKE ONE TABLET BY MOUTH ONE TIME DAILY metformin 500 mg tablet See Rx Instructions .ROUTE .COMPLEX Qty: 450 0RF Dose Instruction: Take 2 tablets by mouth once in the morning, 1 tablet once at noon and2 tablets once in the evening. Rx Instructions: Take 2 tablets by mouth once in the morning, 1 tablet once at noon and2 tablets once in the evening. aspirin [Aspirin Low Dose] 81 mg Tablet,Delayed Release (Dr/Ec) 81 mg PO DAILY 0RF Referrals: Jessica Alston MD [Primary Care Provider] -
--- NOTE | 2021-01-14 13:29 | PC.NURSE ---
Irrigated adams with 100ml NS. Multiple small clots flushed out
--- NOTE | 2021-01-14 14:23 | PC.NURSE ---
Lab in with pt getting labs
[2021-01-14 14:42] LABS: Hematocrit 34.7 % (41-53); Hemoglobin 11.3 g/dL (13.5-17.5); Mean Corpuscular HGB Conc 32.5 % (30-36); Mean Corpuscular Hemoglobin 28.5 PG (26-34); Mean Corpuscular Volume 87.7 fL (80-100); Platelet Count 204 X10^3/uL (150-400); Red Blood Cell Count 3.96 X10^6/uL (4.5-5.9); Red Cell Distribution Width 13.1 % (11.6-14.8); White Blood Cell Count 17.6 X10^3/uL (4.5-11.0)
[2021-01-14 14:43] LABS: Add Manual Diff / Slide Review YES
[2021-01-14 14:53] LABS: Alanine Aminotransferase 16 IU/L (<50); Albumin 3.8 g/dL (3.5-5.0); Albumin Globulin Ratio 1.8 (1.0-2.8); Alkaline Phosphatase 45 U/L (38-126); Aspartate Aminotransferase 27 IU/L (17-59); BUN Creatinine Ratio 18.8 (6-22); Bilirubin Total 1.5 mg/dL (0.2-1.3); Blood Urea Nitrogen 15 mg/dL (9-20); Calcium 9.4 mg/dL (8.4-10.2); Carbon Dioxide 29 mmol/L (22-32); Chloride 102 mmol/L (98-107); Estimated Glomerular Filt Rate > 60.0 mL/min (>60); Globulin 2.1 g/dL (1.7-4.1); Glucose 129 mg/dL (80-110); HEMOLYSIS < 15 (0-50); Potassium 4.2 mmol/L (3.4-5.1); Sodium 137 mmol/L (137-145); Total Protein 5.9 g/dL (6.3-8.2)
[2021-01-14 15:29] LABS: Neutrophils Absolute Manual 5280 /uL (3000-5900); Total Cells Counted 100
[2021-01-14 15:44] LABS: RBC Morphology Normal Morphology
[2021-01-14 15:45] LABS: Smudge Cells 2+
--- NOTE | 2021-01-14 16:05 | PC.NURSE ---
Soto irrigated with 500ml NS prior to d/c to ensure catheter patency. Returned output appears pink with no clots
== END 2021-01-14 16:07 | disposition home or self-care (01) ==
PROVIDERS: Emergency Provider Emergency Medicine; Family Provider Family Medicine; PCP Family Medicine
DX: R33.9 Retention of urine, unspecified (principal); R31.9 Hematuria, unspecified; C67.9 Malignant neoplasm of bladder, unspecified; Z87.891 Personal history of nicotine dependence; Z46.6 Encounter for fitting and adjustment of urinary device
CPT/HCPCS: 36415; 51702; 80053; 81001; 85007; 85025; 87086; 99283

== ENCOUNTER → 2021-04-02 08:55 | Outpatient (CLI) | payer MEDICARE, OTHER, SELFPAY ==
[2021-04-02 10:20] LABS: Reticulocyte Count, Percent 0.9 % (0.9-2.6)
[2021-04-02 10:24] LABS: Add Manual Diff / Slide Review NO; Basophils Absolute Auto 0 /uL (0-100); Basophils Percent Auto 0.1 % (0-2); Eosinophils Absolute Auto 200 /uL (0-450); Hematocrit 35.8 % (41-53); Hemoglobin 11.6 g/dL (13.5-17.5); Lymphocytes Absolute Auto 6100 /uL (1100-4500); Lymphocytes Percent Auto 58.5 % (25-40); Mean Corpuscular HGB Conc 32.3 % (30-36); Mean Corpuscular Hemoglobin 26.4 PG (26-34); Mean Corpuscular Volume 81.5 fL (80-100); Monocytes Absolute Auto 800 /uL (0-900); Monocytes Percent Auto 7.5 % (3-14); Neutrophils Absolute Auto 3300 /uL (1500-7000); Neutrophils Percent Auto 31.9 % (50-75); Platelet Count 187 X10^3/uL (150-400); White Blood Cell Count 10.4 X10^3/uL (4.5-11.0)
== END ==
PROVIDERS: Family Provider Family Medicine; PCP Family Medicine; Referring Provider Family Medicine; Visit Provider Family Medicine
DX: D64.9 Anemia, unspecified (principal)
CPT/HCPCS: 36415; 85025; 85045

== ENCOUNTER → 2021-04-09 09:29 | Outpatient (CLI) | payer MEDICARE, OTHER, SELFPAY ==
[2021-04-09 11:45] LABS: COVID-19 CEPHEID PCR (VTM/NP) Negative (Negative)
== END ==
PROVIDERS: Family Provider Family Medicine; PCP Family Medicine; Visit Provider Family Medicine Sleep Medicine
DX: Z20.822 Contact with and (suspected) exposure to COVID-19 (principal)
CPT/HCPCS: C9803; U0003; U0005

== ENCOUNTER → 2021-07-22 09:37 | Outpatient (CLI) | payer MEDICARE, OTHER, SELFPAY ==
[2021-07-22 10:30] LABS: Add Manual Diff / Slide Review NO; Basophils Absolute Auto 0 /uL (0-100); Basophils Percent Auto 0.1 % (0-2); Eosinophils Absolute Auto 400 /uL (0-450); Hematocrit 37.3 % (41-53); Hemoglobin 11.7 g/dL (13.5-17.5); Lymphocytes Absolute Auto 6900 /uL (1100-4500); Mean Corpuscular HGB Conc 31.4 % (30-36); Mean Corpuscular Hemoglobin 25.4 PG (26-34); Mean Corpuscular Volume 80.9 fL (80-100); Monocytes Absolute Auto 800 /uL (0-900); Monocytes Percent Auto 6.4 % (3-14); Neutrophils Absolute Auto 4700 /uL (1500-7000); Neutrophils Percent Auto 36.5 % (50-75); Platelet Count 200 X10^3/uL (150-400); Red Blood Cell Count 4.61 X10^6/uL (4.5-5.9); Red Cell Distribution Width 16.5 % (11.6-14.8); White Blood Cell Count 12.8 X10^3/uL (4.5-11.0)
[2021-07-22 10:41] LABS: Hemoglobin A1C% w Est Avg Glu 7.3 % (4.0-6.0)
[2021-07-22 10:55] LABS: Alanine Aminotransferase 16 IU/L (<50); Albumin 4.4 g/dL (3.5-5.0); Albumin Globulin Ratio 1.8 (1.0-2.8); Alkaline Phosphatase 55 U/L (38-126); Aspartate Aminotransferase 29 IU/L (17-59); BUN Creatinine Ratio 18.8 (6-22); Bilirubin Total 0.8 mg/dL (0.2-1.3); Blood Urea Nitrogen 16 mg/dL (9-20); Calcium 9.6 mg/dL (8.4-10.2); Carbon Dioxide 28 mmol/L (22-32); Chloride 103 mmol/L (98-107); Cholesterol 118 mg/dL (140-199); Estimated Glomerular Filt Rate > 60 mL/min (>60); Globulin 2.4 g/dL (1.7-4.1); Glucose 162 mg/dL (80-110); HDL Cholesterol 59 mg/dL (40-60); HEMOLYSIS < 15 (0-50); LDL Cholesterol Calculated 43 mg/dL (<100); Potassium 4.4 mmol/L (3.4-5.1); Sodium 139 mmol/L (137-145); Total Protein 6.8 g/dL (6.3-8.2); Triglycerides 79 mg/dL (35-150)
[2021-07-22 13:29] LABS: Creatinine Urine Random 159.4 mg/dL
[2021-07-22 13:33] LABS: Microalbumi Creatinin Ratio Ur 8.1 ug/mg CR (<30); Microalbumin Urine Random 1.3 mg/dL (0-1.6)
== END ==
PROVIDERS: Family Provider Family Medicine; PCP Family Medicine; Referring Provider Family Medicine; Visit Provider Family Medicine
DX: E11.41 Type 2 diabetes mellitus with diabetic mononeuropathy (principal); D64.9 Anemia, unspecified
CPT/HCPCS: 36415; 80053; 80061; 82043; 82570; 83036; 85025

== ENCOUNTER → 2022-04-23 08:16 | Outpatient (CLI) | payer MEDICARE, OTHER, SELFPAY ==
[2022-04-23 09:06] LABS: Add Manual Diff / Slide Review YES; Hematocrit 41.2 % (41-53); Hemoglobin 13.1 g/dL (13.5-17.5); Mean Corpuscular HGB Conc 31.8 % (30-36); Mean Corpuscular Hemoglobin 27.9 PG (26-34); Mean Corpuscular Volume 87.8 fL (80-100); Platelet Count 183 X10^3/uL (150-400); Red Blood Cell Count 4.69 X10^6/uL (4.5-5.9); Red Cell Distribution Width 14.3 % (11.6-14.8)
[2022-04-23 09:36] LABS: Alanine Aminotransferase 22 IU/L (<50); Albumin Globulin Ratio 1.8 (1.0-2.8); Alkaline Phosphatase 52 U/L (38-126); Aspartate Aminotransferase 29 IU/L (17-59); BUN Creatinine Ratio 20.8 (6-22); Bilirubin Total 1.4 mg/dL (0.2-1.3); Blood Urea Nitrogen 16 mg/dL (9-20); Calcium 9.2 mg/dL (8.4-10.2); Carbon Dioxide 27 mmol/L (22-32); Chloride 102 mmol/L (98-107); Estimated Glomerular Filt Rate > 60 mL/min (>60); Globulin 2.2 g/dL (1.7-4.1); Glucose 157 mg/dL (80-110); HEMOLYSIS < 15 (0-50); Potassium 4.3 mmol/L (3.4-5.1); Sodium 136 mmol/L (137-145); Total Protein 6.2 g/dL (6.3-8.2)
[2022-04-23 09:41] LABS: Neutrophils Absolute Manual 5320 /uL (3000-5900); RBC Morphology Normal Morphology; Total Cells Counted 100
[2022-04-23 10:06] LABS: Creatinine Urine Random 240.5 mg/dL
[2022-04-23 10:11] LABS: Microalbumi Creatinin Ratio Ur 6.2 ug/mg CR (<30); Microalbumin Urine Random 1.5 mg/dL (0-1.6)
[2022-04-24 17:02] LABS: Hemoglobin A1C% w Est Avg Glu 7.2 % (4.0-6.0)
== END ==
PROVIDERS: Family Provider Family Medicine; PCP Family Medicine; Referring Provider Family Medicine; Visit Provider Family Medicine
DX: C67.9 Malignant neoplasm of bladder, unspecified (principal); C91.90 Lymphoid leukemia, unspecified not having achieved remission; E11.41 Type 2 diabetes mellitus with diabetic mononeuropathy
CPT/HCPCS: 36415; 80053; 82043; 82570; 83036; 85007; 85025

== ENCOUNTER → 2022-10-13 08:08 | Outpatient (CLI) | payer MEDICARE, OTHER, SELFPAY ==
[2022-10-13 10:03] LABS: Hemoglobin A1C% w Est Avg Glu 6.6 % (4.0-6.0)
[2022-10-13 10:12] LABS: Cholesterol 127 mg/dL (140-199); HDL Cholesterol 55 mg/dL (40-60); LDL Cholesterol Calculated 53 mg/dL (<100); Triglycerides 94 mg/dL (35-150)
== END ==
PROVIDERS: Family Provider Family Medicine; PCP Family Medicine; Referring Provider Family Medicine; Visit Provider Family Medicine
DX: E11.41 Type 2 diabetes mellitus with diabetic mononeuropathy (principal); C67.9 Malignant neoplasm of bladder, unspecified; C91.90 Lymphoid leukemia, unspecified not having achieved remission
CPT/HCPCS: 36415; 80061; 83036

== ENCOUNTER → 2023-04-20 10:06 | Outpatient (CLI) | payer MEDICARE, OTHER, SELFPAY ==
[2023-04-20 11:13] LABS: Alanine Aminotransferase 23 IU/L (<50); Albumin Globulin Ratio 1.6 (1.0-2.8); Alkaline Phosphatase 45 U/L (38-126); Aspartate Aminotransferase 34 IU/L (17-59); Bilirubin Total 1.2 mg/dL (0.2-1.3); Blood Urea Nitrogen 18 mg/dL (9-20); Calcium 9.6 mg/dL (8.4-10.2); Carbon Dioxide 31 mmol/L (22-32); Chloride 104 mmol/L (98-107); Cholesterol 102 mg/dL (140-199); Estimated Glomerular Filt Rate > 60 mL/min (>60); Globulin 2.5 g/dL (1.7-4.1); Glucose 159 mg/dL (80-110); HDL Cholesterol 49 mg/dL (40-60); HEMOLYSIS < 15 (0-50); LDL Cholesterol Calculated 44 mg/dL (<100); Potassium 4.4 mmol/L (3.4-5.1); Sodium 137 mmol/L (137-145); Total Protein 6.5 g/dL (6.3-8.2); Triglycerides 45 mg/dL (35-150)
[2023-04-20 11:41] LABS: Hemoglobin A1C% w Est Avg Glu 6.6 % (4.0-6.0)
[2023-04-20 12:07] LABS: Microalbumi Creatinin Ratio Ur 4.9 ug/mg CR (<30); Microalbumin Urine Random 0.8 mg/dL (0-1.6)
== END ==
LOC: LAB 10:08
PROVIDERS: Family Provider Family Medicine; PCP Family Medicine; Referring Provider Family Medicine; Visit Provider Family Medicine
DX: E11.41 Type 2 diabetes mellitus with diabetic mononeuropathy (principal); Z95.5 Presence of coronary angioplasty implant and graft
CPT/HCPCS: 36415; 80053; 80061; 82043; 82570; 83036

== ENCOUNTER → 2023-05-17 12:24 | Outpatient (CLI) | payer MEDICARE, OTHER, SELFPAY ==
[2023-05-17 12:44] LABS: Add Manual Diff / Slide Review NO; Basophils Absolute Auto 0 /uL (0-100); Basophils Percent Auto 0.2 % (0-2); Eosinophils Absolute Auto 300 /uL (0-450); Eosinophils Percent Auto 1.5 % (2-4); Hematocrit 40.1 % (41-53); Hemoglobin 12.9 g/dL (13.5-17.5); Lymphocytes Absolute Auto 11400 /uL (1100-4500); Lymphocytes Percent Auto 58.6 % (25-40); Mean Corpuscular HGB Conc 32.3 % (30-36); Mean Corpuscular Hemoglobin 28.8 PG (26-34); Mean Corpuscular Volume 89.3 fL (80-100); Monocytes Absolute Auto 1000 /uL (0-900); Monocytes Percent Auto 5.3 % (3-14); Neutrophils Absolute Auto 6700 /uL (1500-7000); Neutrophils Percent Auto 34.4 % (50-75); Platelet Count 188 X10^3/uL (150-400); Red Blood Cell Count 4.49 X10^6/uL (4.5-5.9); White Blood Cell Count 19.4 X10^3/uL (4.5-11.0)
== END ==
PROVIDERS: Family Provider Family Medicine; PCP Family Medicine; Referring Provider Family Medicine; Visit Provider Family Medicine
DX: C91.90 Lymphoid leukemia, unspecified not having achieved remission (principal)
CPT/HCPCS: 36415; 85025

== ENCOUNTER → 2023-10-19 12:41 | Outpatient (CLI) | payer MEDICARE, OTHER, SELFPAY ==
--- NOTE | 2023-10-19 12:44 | DI.MRI.S_ITS ---
PROCEDURE: MR BRAIN (IAC) WWO CON INDICATIONS: ASYMETRICAL SENSORINEURAL HEARING LOSS TECHNIQUE: Noncontrast sagittal T1 spin echo, axial FLAIR, axial gradient echo, axial diffusion and ADC through the brain. Axial thin-slice 3D CISS, coronal TruFISP, axial T1 spin echo with fat saturation through the internal auditory canals. After the administration of contrast, thin slice axial and coronal T1 spin echo with fat saturation through the internal auditory canals, and axial and coronal and sagittal T1 spin echo with fat saturation through the brain. COMPARISON: None. FINDINGS: Image quality: Excellent. Cerebellopontine angles: No cerebellopontine angle masses. Inner ear structures appear normally formed. No suspicious enhancement in the internal auditory canal or along the course of the 7th cranial nerve. CSF spaces: Ventricles are normal in size and shape. No extra-axial fluid collections. Basal cisterns are patent. Brain: No intracranial bleeds or mass effects. Finch-white matter interface is intact. There is age-related global volume loss and mild chronic microvascular ischemic changes. No abnormal intracranial enhancement. Diffusion weighted images demonstrate no acute ischemic insults. Brainstem appears normal. Normal intravascular flow voids are present. Skull and face: Calvarial marrow signal is normal. Orbits appear normal. Sinuses: Sinuses and mastoids are clear. IMPRESSION: No cause for patient's symptoms is identified. Normal appearance of the cerebellopontine angles and internal auditory canals. No acute intracranial abnormalities or abnormal intracranial enhancement. Age-related global volume loss and mild chronic microvascular ischemic changes. Dictated by: Kyle Cedillo M.D. on 10/19/2023 at 15:41 Approved by: Kyle Cedillo M.D. on 10/19/2023 at 15:45
== END ==
PROVIDERS: Family Provider Family Medicine; PCP Family Medicine; Referring Provider Otolaryngology; Visit Provider Otolaryngology
DX: H90.3 Sensorineural hearing loss, bilateral (principal)
CPT/HCPCS: 70553; A9579

== ENCOUNTER → 2024-06-14 10:15 | Outpatient (CLI) | payer MEDICARE, OTHER, SELFPAY ==
[2024-06-14 11:38] LABS: Hematocrit 40.5 % (41-53); Hemoglobin 13.2 g/dL (13.5-17.5); Mean Corpuscular HGB Conc 32.6 % (30-36); Mean Corpuscular Hemoglobin 29.1 PG (26-34); Mean Corpuscular Volume 89.3 fL (80-100); Platelet Count 206 X10^3/uL (150-400); Red Blood Cell Count 4.53 X10^6/uL (4.5-5.9); Red Cell Distribution Width 13.6 % (11.6-14.8); White Blood Cell Count 15.4 X10^3/uL (4.5-11.0)
[2024-06-14 12:06] LABS: BUN Creatinine Ratio 16.3 (6-22); Blood Urea Nitrogen 14 mg/dL (9-20); Calcium 9.7 mg/dL (8.4-10.2); Carbon Dioxide 28 mmol/L (22-32); Chloride 102 mmol/L (98-107); Cholesterol 110 mg/dL (140-199); Estimated Glomerular Filt Rate > 60 mL/min (>60); Glucose 174 mg/dL (70-99); HDL Cholesterol 57 mg/dL (40-60); HEMOLYSIS < 15 (0-50); LDL Cholesterol Calculated 42 mg/dL (<100); Potassium 4.7 mmol/L (3.4-5.1); Sodium 137 mmol/L (137-145); Triglycerides 55 mg/dL (35-150)
== END ==
PROVIDERS: Family Provider Family Medicine; PCP Family Medicine; Referring Provider Internal Medicine Cardiovascular Disease; Visit Provider Internal Medicine Cardiovascular Disease
DX: I25.10 Atherosclerotic heart disease of native coronary artery without angina pectoris (principal)
CPT/HCPCS: 36415; 80048; 80061; 85027

== ENCOUNTER → 2024-07-11 12:45 | Outpatient (CLI) | payer MEDICARE, OTHER, SELFPAY ==
[2024-07-12 14:13] LABS: Fecal Immunochemical Test Negative (Negative)
== END ==
PROVIDERS: Family Provider Family Medicine; PCP Family Medicine; Referring Provider Family Medicine; Visit Provider Family Medicine
DX: Z12.11 Encounter for screening for malignant neoplasm of colon (principal)
CPT/HCPCS: 82274